=== PATIENT | male | born 2000 | race Caucasian/White ===

== ENCOUNTER 2024-04-25 17:01 | Emergency (ER) | payer OTHER ==
[~2024-04-25] VITALS: Ht 175.3 cm; Wt 108.9 kg
[2024-04-25 17:28] VITALS: BP_SYST 149; PULSE 83; RESP 20; TEMP 97.2; O2SAT 98
[2024-04-25] MEDS ORDERED: BACITRACIN 1 GM OINT TP ONE (19:30)
[2024-04-25 19:56] VITALS: BP_SYST 132; PULSE 68; RESP 18; TEMP 97.2; O2SAT 100
== END 2024-04-25 19:56 | disposition home or self-care (01) ==
LOC: SED 17:01
DX: S61.012A Laceration without foreign body of left thumb without damage to nail, initial encounter (principal); W25.XXXA Contact with sharp glass, initial encounter; Y93.89 Activity, other specified; Y92.89 Other specified places as the place of occurrence of the external cause; Y99.8 Other external cause status
CPT/HCPCS: 99282